=== PATIENT | female | born 1970 | race Caucasian/White ===

== ENCOUNTER 2018-11-26 22:51 | Emergency (ER) | payer MEDICAID ==
[~2018-11-26] VITALS: Ht 165.1 cm; Wt 93.0 kg
[~2018-11-26 22:51] MED LIST: ADULT LOW DOSE81 MG PO; BACTRIM PO; HYDROCHLOROTHIA25 M2 PO; IBUPROFEN 800800 M1 PO; IBUPROFEN200 M1 PO; LABETALOL 100100 MG PO; LISINOPRIL10 MG PO; LOPRESSOR50 PO; NORCO 5-325 TA1 EACH PO; TRAMADOL 50 MG50 MG PO
[2018-11-26] MEDS ORDERED: TRAZODONE 150150 M1 (23:09)
[2018-11-26] MEDS ORDERED: PROTONIX40 M1 (23:10)
[2018-11-26] MEDS ORDERED: NEURONTIN 300300 M1 (23:10)
[2018-11-26] MEDS ORDERED: HYDRALAZINE 2525 M1 (23:11)
[2018-11-27] MEDS ORDERED: TRAMADOL 50 MG50 MG PO (00:50)
[2018-11-27 01:05] VITALS: BP 159/92
== END 2018-11-27 01:06 | disposition home or self-care (01) ==
LOC: M.ERS 22:51
DX: S93.491A Sprain of other ligament of right ankle, initial encounter (principal); M54.5 Low back pain; I10 Essential (primary) hypertension; G43.909 Migraine, unspecified, not intractable, without status migrainosus; G47.30 Sleep apnea, unspecified; Z91.040 Latex allergy status; Z88.8 Allergy status to other drugs, medicaments and biological substances; W18.39XA Other fall on same level, initial encounter; Y93.89 Activity, other specified; Y92.89 Other specified places as the place of occurrence of the external cause; Y99.8 Other external cause status